=== PATIENT | female | born 1995 | race American Indian/Alaskan Native ===

== ENCOUNTER 2019-07-15 09:27 | Emergency (ER) | payer OTHER ==
[2019-07-15 09:34] VITALS: BP 106/67
[2019-07-15 10:17] LABS: Bacteria,Urine 2+ /HPF (Negative); Bilirubin,Urine NEG (Negative); Blood,Urine NEG (Negative); Color,Urine Yellow (Yellow); Mucus,Urine 1+ /HPF; Protein,Urine <15 mg/dL mg/dL (Negative); Urobilinogen,Urine < 2.0 mg/dL (<2.0)
[2019-07-15 10:33] LABS: Basophils % (Auto) 0.3 % (0.0-1.8); Eosinophils # (Auto) 0.3 K/mm3 (0.0-0.4); Eosinophils % (Auto) 2.9 % (0.0-4.3); Hematocrit 41.5 % (30.3-42.9); Hemoglobin 13.9 gm/dl (10.1-14.3); Lymphocytes # (Auto) 1.4 K/mm3 (1.2-5.4); Lymphocytes % (Auto) 14.3 % (13.4-35.0); Mean Corpuscular HGB Conc 34 % (30-34); Mean Corpuscular Volume 90 fl (79-97); Monocytes # (Auto) 0.8 K/mm3 (0.0-0.8); Monocytes % (Auto) 7.9 % (0.0-7.3); Platelet Count 183 K/mm3 (140-440); Red Blood Count 4.61 M/mm3 (3.65-5.03); Red Cell Distribution Width 13.3 % (13.2-15.2)
--- NOTE | 2019-07-15 11:18 | Emergency Department Report ---
ED Female HPI - General Chief complaint: Abdominal Pain Stated complaint: 4MTHS PREG/ABD PAIN Time Seen by Provider: 07/15/19 09:39 Source: patient Mode of arrival: Ambulatory Limitations: No Limitations - History of Present Illness Initial comments: This is a 24-year-old female who presents to ED at approximately 14 weeks gestation stating last menstrual period as 04/05/2019. Patient states that for the past month she isn't having intermittent spotting. Patient states she has not received care as she just recently moved to the [facility]. Patient is also experiencing low pelvic cramping. She states that yesterday she started experiencing throbbing aching headache. She denies any trauma or injuries. She denies fever, chills, dysuria - Related Data Previous Rx's Medication Instructions Recorded Last Taken Type Nitrofurantoin Wake/M-Cryst 100 mg PO Q12HR #14 capsule 07/15/19 Unknown Rx [Macrobid CAP] Allergies Allergy/AdvReac Type Severity Reaction Status Date / Time No Known Allergies Allergy Unverified 07/15/19 09:28 ED Review of Systems ROS: Stated complaint: 4MTHS PREG/ABD PAIN Other details as noted in HPI Comment: All other systems reviewed and negative ED Past Medical Hx - Past Medical History Previous Medical History?: No - Surgical History Past Surgical History?: No - Social History Smoking Status: Never Smoker Substance Use Type: None - Medications Home Medications: Home Medications Medication Instructions Recorded Confirmed Last Taken Type Nitrofurantoin Wake/M-Cryst 100 mg PO Q12HR #14 capsule 07/15/19 Unknown Rx [Macrobid CAP] ED Physical Exam - General Limitations: No Limitations General appearance: alert, in no apparent distress - Head Head exam: Present: atraumatic, normocephalic - Eye Eye exam: Present: normal appearance - ENT ENT exam: Present: mucous membranes moist - Neck Neck exam: Present: normal inspection - Respiratory Respiratory exam: Present: normal lung sounds bilaterally. Absent: respiratory distress - Cardiovascular Cardiovascular Exam: Present: regular rate, normal rhythm. Absent: systolic murmur, diastolic murmur, rubs, gallop - GI/Abdominal GI/Abdominal exam: Present: soft, normal bowel sounds - Extremities Exam Extremities exam: Present: normal inspection - Back Exam Back exam: Present: normal inspection - Neurological Exam Neurological exam: Present: alert, oriented X3 - Psychiatric Psychiatric exam: Present: normal affect, normal mood - Skin Skin exam: Present: warm, dry, intact, normal color. Absent: rash ED Course Vital Signs 07/15/19 09:32 Temperature 98.9 F Pulse Rate 92 H Respiratory 18 Rate Blood Pressure 106/67 O2 Sat by Pulse 96 Oximetry ED Medical Decision Making - Lab Data Result diagrams: 07/15/19 10:05 Laboratory Last Values WBC 10.1 K/mm3 (4.5-11.0) 07/15/19 10:05 RBC 4.61 M/mm3 (3.65-5.03) 07/15/19 10:05 Hgb 13.9 gm/dl (10.1-14.3) 07/15/19 10:05 Hct 41.5 % (30.3-42.9) 07/15/19 10:05 MCV 90 fl (79-97) 07/15/19 10:05 MCH 30 pg (28-32) 07/15/19 10:05 MCHC 34 % (30-34) 07/15/19 10:05 RDW 13.3 % (13.2-15.2) 07/15/19 10:05 Plt Count 183 K/mm3 (140-440) 07/15/19 10:05 Lymph % (Auto) 14.3 % (13.4-35.0) 07/15/19 10:05 Wake % (Auto) 7.9 % (0.0-7.3) H 07/15/19 10:05 Eos % (Auto) 2.9 % (0.0-4.3) 07/15/19 10:05 Baso % (Auto) 0.3 % (0.0-1.8) 07/15/19 10:05 Lymph # 1.4 K/mm3 (1.2-5.4) 07/15/19 10:05 Wake # 0.8 K/mm3 (0.0-0.8) 07/15/19 10:05 Eos # 0.3 K/mm3 (0.0-0.4) 07/15/19 10:05 Baso # 0.0 K/mm3 (0.0-0.1) 07/15/19 10:05 Seg Neutrophils % 74.6 % (40.0-70.0) H 07/15/19 10:05 Seg Neutrophils # 7.6 K/mm3 (1.8-7.7) 07/15/19 10:05 HCG, Qual Positive (Negative) 07/15/19 10:05 HCG, Quant 71972 mIU/mL (0-4) H 07/15/19 10:05 Urine Color Yellow (Yellow) 07/15/19 09:43 Urine Turbidity Cloudy (Clear) 07/15/19 09:43 Urine pH 7.0 (5.0-7.0) 07/15/19 09:43 Ur Specific [place] 1.020 (1.003-1.030) 07/15/19 09:43 Urine Protein <15 mg/dl mg/dL (Negative) 07/15/19 09:43 Urine Glucose (UA) Neg mg/dL (Negative) 07/15/19 09:43 Urine Ketones Neg mg/dL (Negative) 07/15/19 09:43 Urine Blood Neg (Negative) 07/15/19 09:43 Urine Nitrite Neg (Negative) 07/15/19 09:43 Urine Bilirubin Neg (Negative) 07/15/19 09:43 Urine Urobilinogen < 2.0 mg/dL (<2.0) 07/15/19 09:43 Ur Leukocyte Esterase Tr (Negative) 07/15/19 09:43 Urine WBC (Auto) 8.0 /HPF (0.0-6.0) H 07/15/19 09:43 Urine RBC (Auto) 4.0 /HPF (0.0-6.0) 07/15/19 09:43 U Epithel Cells (Auto) 12.0 /HPF (0-13.0) 07/15/19 09:43 Urine Bacteria (Auto) 2+ /HPF (Negative) 07/15/19 09:43 Urine Mucus 1+ /HPF 07/15/19 09:43 Blood Type O POSITIVE 07/15/19 10:05 Ord Rhogam Gestat Weeks Rh pos WEEKS 07/15/19 10:05 - Radiology Data Radiology results: report reviewed, image reviewed N: None FINDINGS: A single gestation intrauterine is present with breech presentation. The placenta is posterior low lying and grade 0. The cervix is obscured. I cannot assess for previa. heart tones measure 157 bpm. Subjective amniotic fluid is is within normal limits. anatomical survey was not performed. Biparietal diameter is 3.0 cm which equals 15 weeks 3 days. Head circumference is 11.4 cm which equals 15 weeks 4 days. Abdominal circumference is 9.3 cm which equals 15 weeks 3 days. Femur length is 1.6 cm which equals 14 weeks 4 days. Overall estimated sonographic age is . IMPRESSION: Viable, single intrauterine as described. Signer Name: Neal Sanchez Jr, MD Signed: 07/15/2019 12:08 PM Workstation Name: [id number] Transcribed By: TTR Dictated By: NEAL SANCHEZ JR, MD Electronically Authenticated By: NEAL SANCHEZ JR, MD Signed Date/Time: 07/15/19 1208 - Medical Decision Making 24-year-old female presents with pelvic pain to her is likely seconda ry to acute cystitis. All labs within normal limits. Urinalysis is positive for 2+ bacteria and BPC. We'll treat with Macrobid Discussed findings with mother and patient. Ultrasound shows no acute findings. [facility] referrals given to patient discussed follow-up Patient is in no acute distress she reports her wall Vital signs are normal Critical care attestation.: If time is entered above; I have spent that time in minutes in the direct care of this critically ill patient, excluding procedure time. ED Disposition Clinical Impression: Pelvic pain during , Acute cystitis during Disposition: DC-01 TO HOME OR SELFCARE Is pt being admited?: No Does the pt Need Aspirin: No Condition: Stable Instructions: Abdominal Pain (ED), Urinary Tract Infection in Women (ED) Additional Instructions: Make sure to follow up with the primary care physician as discussed. Follow-up with [facility] as discussed. Take all your medications as you've been prescribed. If you have any worsening symptoms or develop new symptoms please return to ED immediately. Prescriptions: Nitrofurantoin Wake/M-Cryst [Macrobid CAP] 100 mg PO Q12HR #14 capsule Referrals: [facility] [Primary Care Provider] - 3-5 Days [facility] [Provider Group] - 3-5 Days [facility] [Provider Group] - 3-5 Days [facility] [Provider Group] - 3-5 Days Forms: Accompanied Note, Work/School Release Form(ED) Time of Disposition: 12:30
--- NOTE | 2019-07-15 12:12 | Ultrasound Report ---
OB ULTRASOUND >= 14 WEEKS FETUS INDICATION: Vaginal bleeding during COMPARISON: None FINDINGS: A single gestation intrauterine is present with breech presentation. The placenta is union contract representative ior low lying and grade 0. The cervix is obscured. I cannot assess for previa. heart tones ned ure 157 bpm. Subjective amniotic fluid is is within normal limits. anatomical survey was not performed. Biparietal diameter is 3.0 cm which equals 15 weeks 3 days. Head circumference is 11.4 cm which equals 15 weeks 4 days. Abdominal circumference is 9.3 cm which equals 15 weeks 3 days. Femur length is 1.6 cm which equals 14 weeks 4 days. Overall estimated sonographic age is . IMPRESSION: Viable, single intrauterine as described. Signer Name: Neal Lockwood Jr, MD Signed: 07/15/2019 12:08 PM Workstation Name: [id number]
== END 2019-07-15 13:10 | disposition home or self-care (01) ==
LOC: ED 09:27
DX: O23.12 Infections of bladder in pregnancy, second trimester (principal); Z79.899 Other long term (current) drug therapy; Z3A.15 15 weeks gestation of pregnancy
CPT/HCPCS: 36415; 76805; 81001; 84702; 84703; 85025; 86900; 86901

== ENCOUNTER 2019-09-02 11:19 | Outpatient (CLI) | payer MEDICAID ==
[2019-09-02] MEDS ORDERED: LACTATED RINGERS 1,000 ML IV ONE (12:17)
[2019-09-02 12:29] LABS: Bacteria,Urine 1+ /HPF (Negative); Bilirubin,Urine NEG (Negative); Blood,Urine NEG (Negative); Color,Urine Yellow (Yellow); Mucus,Urine FEW /HPF; Protein,Urine <15 mg/dL mg/dL (Negative); Urobilinogen,Urine < 2.0 mg/dL (<2.0)
[2019-09-02 14:23] VITALS: BP 203/110
== END 2019-09-02 14:17 | disposition home or self-care (01) ==
LOC: TRG 11:19
PROVIDERS: ATTEND Obstetrics & Gynecology
DX: O26.892 Other specified pregnancy related conditions, second trimester (principal); R52 Pain, unspecified; O47.02 False labor before 37 completed weeks of gestation, second trimester; Z3A.21 21 weeks gestation of pregnancy
CPT/HCPCS: 59025; 81001; 96360; J7120

== ENCOUNTER 2019-09-10 16:05 | Outpatient (CLI) | payer MEDICAID ==
[2019-09-10 16:32] VITALS: BP 105/56
[2019-09-10 16:35] LABS: Bilirubin,Urine NEG (Negative); Blood,Urine LG (Negative); Color,Urine Yellow (Yellow); Mucus,Urine FEW /HPF; Urobilinogen,Urine < 2.0 mg/dL (<2.0)
[2019-09-10 16:36] LABS: RBC,Urine > 182.0 /HPF (0.0-6.0)
[2019-09-10] MEDS ORDERED: LACTATED RINGERS 500 ML IV ONE (17:00)
[2019-09-10] MEDS ORDERED: LACTATED RINGERS 1,000 ML IV ONE (18:03)
[2019-09-10] MEDS ORDERED: cefTRIAXone/NS 1 GM/50 ML 1 GM/50 ML BAG IV ONE (18:54)
== END 2019-09-10 19:00 | disposition home or self-care (01) ==
LOC: TRG 16:05
PROVIDERS: ATTEND Obstetrics & Gynecology
DX: O26.892 Other specified pregnancy related conditions, second trimester (principal); R31.9 Hematuria, unspecified; O47.02 False labor before 37 completed weeks of gestation, second trimester; Z3A.22 22 weeks gestation of pregnancy
CPT/HCPCS: 59025; 81001; 87086; 96365; J0696; J7120; 96360; 96374

== ENCOUNTER 2019-12-27 19:06 | Outpatient (CLI) | payer MEDICAID | END 2019-12-27 20:25 | disposition home or self-care (01) | LOC: TRG 19:06 | PROVIDERS: ATTEND Obstetrics & Gynecology | DX: O26.893 Other specified pregnancy related conditions, third trimester (principal); G83.89 Other specified paralytic syndromes; Z3A.30 30 weeks gestation of pregnancy | CPT/HCPCS: 87529 ==

== ENCOUNTER 2020-01-03 13:59 | Inpatient (IN) | payer MEDICAID ==
--- NOTE | 2020-01-03 17:16 | Ultrasound Report ---
ULTRASOUND BIOPHYSICAL PROFILE INDICATION / CLINICAL INFORMATION: Evaluate well being. COMPARISON: Obstetrical ultrasound, 07/15/2019 FINDINGS: BREATHING MOVEMENT = 0 GROSS BODY MOVEMENT = 2 TONE = 2 QUALITATIVE AMNIOTIC FLUID VOLUME = 2 TOTAL BIOPHYSICAL SCORE = 6/8 AMNIOTIC FLUID INDEX (cm) = 21 Amniotic fluid appears echogenic. PRESENTATION: Cephalic. HEART RATE (beats per minute): 110 IMPRESSION: 1. biophysical profile = /8 with details given above. 2. Low heart rate at 110 bpm. 3. Overall, amniotic fluid appears echogenic, suggesting complicated fluid or debris. Signer Name: Kristen Mccollum MD Signed: 01/03/2020 5:12 PM Workstation Name: [id number]
[2020-01-03] MEDS ORDERED: MORPHINE 2 MG/1 ML INJ IM ONE (17:38)
[2020-01-03] MEDS ORDERED: LACTATED RINGERS 1,000 ML ONE (19:40)
[2020-01-03] MEDS ORDERED: OXYTOCIN 20 UNIT/1000ML DRIP 20,000 MILLIUNITS/1,000 ML BAG IV ONE (19:41)
[2020-01-03] MEDS ORDERED: MINERAL OIL 30 ML ORAL LIQD ONE (19:41)
[2020-01-03] MEDS ORDERED: LACTATED RINGERS 1,000 ML IV ONE (19:41)
[2020-01-03 20:20] LABS: Basophils % (Auto) 0.3 % (0.0-1.8); Eosinophils % (Auto) 0.1 % (0.0-4.3); Hematocrit 40.6 % (30.3-42.9); Hemoglobin 13.4 gm/dl (10.1-14.3); Lymphocytes # (Auto) 2.2 K/mm3 (1.2-5.4); Lymphocytes % (Auto) 15.1 % (13.4-35.0); Mean Corpuscular HGB Conc 33 % (30-34); Mean Corpuscular Volume 88 fl (79-97); Monocytes # (Auto) 1.2 K/mm3 (0.0-0.8); Monocytes % (Auto) 8.3 % (0.0-7.3); Platelet Count 240 K/mm3 (140-440); Red Cell Distribution Width 14.4 % (13.2-15.2)
[2020-01-03] MEDS ORDERED: fentaNYL 100 MCG/2 ML INJ IV PRN (20:29)
[2020-01-03] MEDS ORDERED: BUTORPHANOL 2 MG/1 ML INJ IV PRN ×2 (20:29)
[2020-01-03] MEDS ORDERED: AMPICILLIN/NS 2 GM/100 ML 2 GM/100 ML BAG IV ONE (20:29)
[2020-01-03] MEDS ORDERED: LIDOCAINE (2%) 20 MG/1 ML VIAL 20 ML MDV INFILTRATI ONE (20:29)
[2020-01-03] MEDS ORDERED: NALOXONE 0.4 MG/1 ML INJ IV PRN (20:29)
[2020-01-03] MEDS ORDERED: TERBUTALINE 1 MG/1 ML INJ SUB-Q PRN (20:29)
[2020-01-03] MEDS ORDERED: TERBUTALINE 1 MG/1 ML INJ IVP PRN (20:29)
[2020-01-03] MEDS ORDERED: ONDANSETRON 4 MG/2 ML INJ IV PRN (20:29)
[2020-01-03] MEDS ORDERED: MINERAL OIL 30 ML ORAL LIQD PO PRN (20:29)
[2020-01-03] MEDS ORDERED: ePHEDrine SULFATE 50 MG/1 ML INJ IV PRN ×2 (20:29→21:13)
--- NOTE | 2020-01-03 20:41 | History and Physical Report ---
History of Present Illness Date of examination: 01/04/20 Chief complaint: contractions History of present illness: Pt is a 24 year old female primigravida TIA 01/10/20 at 39w1d who pre sents with painful contractions and cervical change from 1 to 3 cm. 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 She is GBS negative. PUI?: No Past History Past Medical History: neurologic (Brown's Palsy ) Past Surgical History: no surgical history Family/Genetic History: none Social history: no significant social history - Obstetrical History Expected Date of Delivery: 01/10/20 Actual Gestation: 39 Week(s) 1 Day(s) : 1 Medications and Allergies Allergies Allergy/AdvReac Type Severity Reaction Status Date / Time No Known Allergies Allergy Verified 01/03/20 14:00 Home Medications Medication Instructions Recorded Confirmed Last Taken Type Nitrofurantoin Lee/M-Cryst 100 mg PO Q12HR #14 capsule 07/15/19 Unknown Rx [Macrobid CAP] prednisoLONE [Millipred] 2 tab PO BID 12 Days #48 tablet 12/27/19 Unknown Rx Active Meds: Active Medications Butorphanol Tartrate (Stadol) 1 mg IV Q2H PRN PRN Reason: Labor Pain Butorphanol Tartrate (Stadol) 2 mg IV Q2H PRN PRN Reason: Pain , Severe (7-10) Ephedrine Sulfate (Ephedrine Sulfate) 10 mg IV Q2M PRN PRN Reason: Hypotension Fentanyl (Sublimaze) 100 mcg IV Q2H PRN PRN Reason: Labor Pain Oxytocin/Sodium Chloride (Pitocin/Ns 20 Unit/1000ml Drip) 20 units in 1,000 mls @ 125 mls/hr IV DIRECT SARA Oxytocin/Sodium Chloride (Pitocin/Ns 30 Unit/500ml) 30 units in 500 mls @ 1 mls/hr IV TITR SARA; Protocol Oxytocin/Sodium Chloride (Pitocin/Ns 30 Unit/500ml) 30 units in 500 mls @ 2 mls/hr IV TITR SARA; Protocol Lactated Ringer's (Lactated Ringers) 1,000 mls @ 125 mls/hr IV DIRECT SARA Ampicillin Sodium (Ampicillin/Ns 2 Gm/100 Ml) 2 gm in 100 mls @ 100 mls/hr IV ONCE ONE; Protocol Stop: 01/03/20 21:28 Ampicillin Sodium (Ampicillin/Ns 1 Gm/50 Ml) 1 gm in 50 mls @ 100 mls/hr IV Q4HR SARA; Protocol Lidocaine (Xylocaine 2%) 20 ml INFILTRATI ONCE ONE Stop: 01/03/20 20:30 Mineral Oil (Mineral Oil) 30 ml PO QHS PRN PRN Reason: Constipation Naloxone HCl (Naloxone) 0.1 mg IV Q2MIN PRN PRN Reason: Res Rate </= 8 or 02 SAT < 92% Ondansetron HCl (Zofran) 4 mg IV Q8H PRN PRN Reason: Nausea And Vomiting Terbutaline Sulfate (Brethine) 0.25 mg SUB-Q ONCE PRN PRN Reason: Hyperstimulation/Hypertonicity Terbutaline Sulfate (Brethine) 0.25 mg IVP ONCE PRN PRN Reason: Hyperstimulation/Hypertonicity Review of Systems All systems: negative - Vital Signs Vital signs: Vital Signs Pulse BP 101 H 115/64 01/03/20 14:16 01/03/20 14:16 Temp Pulse Resp BP Pulse Ox 98.5 F 76 131/71 86 01/03/20 19:30 01/03/20 20:31 01/03/20 20:31 01/03/20 19:40 - Physical Exam Abdomen: Positive: soft (gravid ) Uterus: Positive: enlarged (gravid ) - Obstetrical FHR: auscultation normal Cervical Dilatation: 10 Cervical Effacement Percentage: 100 station: +2 Uterine Contraction Pattern: Regular Uterine Tone Measurement Phase: Resting Uterine Contraction Intensity: Strong/Firm Results Result Diagrams: 01/03/20 19:30 Abnormal lab results 01/03/20 Range/Units 19:30 WBC 14.5 H (4.5-11.0) K/mm3 Lee % (Auto) 8.3 H (0.0-7.3) % Lee # 1.2 H (0.0-0.8) K/mm3 Seg Neutrophils % 76.2 H (40.0-70.0) % Seg Neutrophils # 11.1 H (1.8-7.7) K/mm3 All other labs normal. Assessment and Plan A: IUP at 39w1d Active labor Brown's Palsy GBS Negative P: Admit to labor and delivery. Routine intrapartum care
[2020-01-03] MEDS ORDERED: DEXMEDETOMIDINE 200 MCG/2 ML VIAL IV ONE (20:48)
[2020-01-03] MEDS ORDERED: OXYTOCIN DRIP 30 UNITS/500 ML BAG IV SCH ×2 (21:00)
[2020-01-03] MEDS ORDERED: LACTATED RINGERS 1,000 ML IV SCH (21:00)
[2020-01-03] MEDS ORDERED: NALOXONE 2 MG/2 ML INJ IV PRN (21:13)
--- NOTE | 2020-01-03 21:17 | Anesthesia Consultation ---
Anesthesia Consult and Med Hx Date of service: 01/03/20 - Airway Anesthetic Teeth Evaluation: Good ROM Head & Neck: Adequate Mental/Hyoid Distance: Adequate Mallampati Class: Class II Intubation Access Assessment: Probably Good - Pulmonary Exam CTA: Yes - Cardiac Exam Cardiac Exam: RRR - Pre-Operative Health Status ASA Pre-Surgery Classification: ASA2 Proposed Anesthetic Plan: Epidural - Pulmonary Hx Smoking: No Hx Asthma: No Hx Respiratory Symptoms: No SOB: No COPD: No Home Oxygen Therapy: No Hx Pneumonia: No Hx Sleep Apnea: No - Cardiovascular System Hx Hypertension: No Hx Coronary Artery Disease: No Hx Heart Attack/AMI: No Hx Angina: No Hx Percutaneous Transluminal Coronary Angioplasty (PTCA): No Hx Cardia Arrhythmia: No Hx Pacemaker: No Hx Internal Defibrillator: No Hx Valvular Heart Disease: No Hx Heart Murmur: No Hx Peripheral Vascular Disease: No - Central Nervous System Hx Neuromuscular Disorder: No Hx Seizures: No CVA: No Hx Back Pain: No Hx Psychiatric Problems: No - Gastrointestinal Hx Ulcer: No Hx Gastroesophageal Reflux Disease: Yes - Endocrine Hx Renal Disease: No Hx End Stage Renal Disease: No Hx Cirrhosis: No Hx Liver Disease: No Hx Insulin Dependent Diabetes: No Hx Non-Insulin Dependent Diabetes: No Hx Thyroid Disease: No Hx Hypothyroidism: No Hx Hyperthyroidism: No - Hematic Hx Anemia: No Hx Sickle Cell Disease: No - Other Systems Hx Alcohol Use: No Hx Substance Use: No Hx Cancer: No Hx Obesity: No
--- NOTE | 2020-01-03 21:44 | Progress Note ---
Labor Epidural - Labor Epidural Start Time: 20:42 Stop Time: 20:58 Performed by:: ANGELA PARTIDA Procedure: Combined Spinal Epidural Patient is requesting combined spinal epidural for labor and pain. H&P, labs were reviewed. All questions and concerns were answered. Informed consent was obtained. Timeout performed. Patient in sitting position on side of bed. Sterile prep and drape was performed. [3] mL 1% lidocaine skin wheal at L [4]-L 5 []. 18-gauge Touhy epidural needle advanced to [id number] using air technique, [5cm]. 27-gauge spinal needle advanced [clear positive free- flowing] CSF. spinal dose of [Precedex 10 mcg]. Epidural catheter advanced to [10] cm. [Negative] Aspiration, [negative] test dose. Sterile dressing applied. Patient tolerated procedure well.
[2020-01-03] MEDS ORDERED: fentaNYL-BUPIV 2 MCG/ML-0.125% 200 MCG/100 ML BAG EPIDURAL SCH (22:00)
[2020-01-04] MEDS: OXYTOCIN 20 UNIT/1000ML DRIP 20 UNITS/1,000 ML BAG IV SCH ×2 (00:18→01:08)
[2020-01-04] MEDS ORDERED: AMPICILLIN/NS 1 GM/50 ML 1 GM/50 ML BAG IV SCH (00:31)
--- NOTE | 2020-01-04 00:47 | Procedure Note ---
OB Delivery Note - Delivery Date of Delivery: 01/04/20 Surgeon: RORO RICE Estimated blood loss: other (400 mL) - Vaginal Delivery presentation: vertex Delivery position: OA Intrapartum events: PROM->1hr before delivery Delivery induction: none Delivery monitor: external FHT, external uterine Route of delivery: Delivery placenta: spontaneous Delivery cord: nuchal cord (x 1, tight, delivered through ) Episiotomy: none Delivery laceration: 2nd degree Delivery repair: vicryl Anesthesia: epidural - Infant A at 1 minute: 7 at 5 minutes: 9 Gender: Male (7lb 7.6 oz @ 0008 am)
--- NOTE | 2020-01-04 02:05 | Event Note ---
Date: 01/04/20 After delivery, pt was febrile to 101. Begin Ampicillin, Gentamicin and Clindamycin. Continue to monitor clinically.
[2020-01-04] MEDS ORDERED: GENTAMICIN 0 MG in SODIUM CHLORIDE 0.9% 100 ML IV SCH (02:15)
[2020-01-04] MEDS ORDERED: ACETAMINOPHEN 325 MG TAB PO ONE (02:22)
[2020-01-04] MEDS: AMPICILLIN/NS 2 GM/100 ML 2 GM/100 ML BAG IV SCH ×4 (02:34→21:07)
[2020-01-04] MEDS ORDERED: PROMETHAZINE 25 MG RECT SUPP PR PRN (03:55)
[2020-01-04] MEDS ORDERED: LANOLIN/ZINC/DIMETHICONE (LANSINOH) 7 GM TP PRN ×2 (03:55)
[2020-01-04] MEDS ORDERED: OXYTOCIN 20 UNIT/1000ML DRIP 20 UNITS/1,000 ML BAG IV SCH (03:55)
[2020-01-04] MEDS ORDERED: ONDANSETRON 4 MG/2 ML INJ IV PRN (03:55)
[2020-01-04] MEDS ORDERED: ACETAMINOPHEN 325 MG TAB PO PRN (03:55)
[2020-01-04] MEDS ORDERED: diphenhydrAMINE 25 MG CAP PO PRN (03:55)
[2020-01-04] MEDS ORDERED: PROMETHAZINE 25 MG TAB PO PRN (03:55)
[2020-01-04] MEDS ORDERED: MAGNESIUM HYDROXIDE (MOM) ORAL LIQD UDC PO PRN (03:55)
[2020-01-04] MEDS ORDERED: HYDROcodone/ACETAMINOPHEN 5-325 MG TAB PO PRN (03:55)
[2020-01-04] MEDS: GENTAMICIN/NS 80 MG/100 ML 100 ML IV SCH ×3 (04:38→19:59)
[2020-01-04] MEDS: IBUPROFEN 600 MG TAB PO SCH ×3 (04:43→17:33)
[2020-01-04] MEDS: BENZOCAINE/MENTHOL 20/0.5% TOP SPRAY 56 GM TP PRN ×2 (06:27→21:06)
[2020-01-04] MEDS: WITCH HAZEL/ GLYCERIN PAD TP PRN ×2 (06:27→21:04)
[2020-01-04] MEDS: FERROUS SULFATE 325 MG TAB PO SCH ×2 (08:59→21:03)
[2020-01-04] MEDS ORDERED: LACTATED RINGERS 1,000 ML IV SCH (09:00)
--- NOTE | 2020-01-04 10:50 | Post Anesthesia Evaluation ---
- Post Anesthesia Evaluation Patient Participated: Yes Airway Patent: Yes Stable Respiratory Function: Yes Nausea/Vomiting: No Temp > 96.8F: Yes Pain Manageable: Yes Adequeate Hydration: Yes Anesthesia Complications: No Block Receding Appropriately: Yes Patient on Ventilator: No
[2020-01-04 14:21] LABS: Hematocrit 35.3 % (30.3-42.9); Hemoglobin 11.9 gm/dl (10.1-14.3)
[2020-01-05] MEDS ORDERED: MEASLES, MUMPS & RUBELLA 12,500 UNIT/0.5 ML VACCINE SUB-Q ONE (00:50)
[2020-01-05] MEDS: GENTAMICIN/NS 80 MG/100 ML 100 ML IV SCH (02:42)
[2020-01-05] MEDS: AMPICILLIN/NS 2 GM/100 ML 2 GM/100 ML BAG IV SCH (03:36)
[2020-01-05] MEDS ORDERED: TETANUS,DIPH,PERTUSS(ACELL) VACCINE 0.5 ML SYRINGE IM ONE (06:00)
--- NOTE | 2020-01-05 07:00 | Ultrasound Report ---
Please see "ULTRASOUND BIOPHYSICAL PROFILE" performed at the same time for combined report. Signer Name: Ryan Andrade MD Signed: 01/05/2020 6:55 AM Workstation Name: [id number]
--- NOTE | 2020-01-05 08:06 | Progress Note ---
Assessment and Plan A/P PPD1 s/p discharge home tomorrow Subjective - Subjective Date of service: 01/05/20 Principal diagnosis: s/p Patient reports: appetite normal, voiding normally, pain well controlled, flatus, ambulating normally : doing well Objective - Vital Signs Latest vital signs: Vital Signs Temp Pulse Resp BP Pulse Ox 01/05/20 02:15 98.2 F 87 18 116/72 97 01/04/20 17:53 98.4 F 85 18 107/60 98 01/04/20 12:41 98.1 F 97 H 18 121/70 98 01/04/20 08:10 98.5 F Intake and Output 01/04/20 01/05/20 01/05/20 23:59 07:59 15:59 Intake Total 830 360 Output Total 750 Balance 80 360 Intake: IV 350 AMPICILLIN/NS 2 GM/100 ML 200 2 gm In 100 ml @ 100 mls /hr IV Q6H SARA Rx#: [id number] CLEOCIN 900 MG/50 mL 900 50 mg In 50 ml @ 100 mls/hr IV Q8H SARA Rx#:[id number] Gentamicin/Ns 80 mg/100 100 ml 100 ml @ 200 mls/hr IV Q8H SARA Rx#:[id number] Oral 480 360 Output: Urine 750 Indwelling Catheter 750 Other: Total, Intake Amount 240 120 Total, Output Amount 750 # Voids Void 1 1 - Exam Breasts: Present: normal Cardiovascular: Present: Regular rate, Normal S1 Lungs: Present: Clear to auscultation, Normal air movement Abdomen: Present: normal appearance, soft, normal bowel sounds. Absent: dis tention, tenderness, guarding Vulva: both: normal Uterus: Present: normal, firm. Absent: bogginess, tenderness Extremities: Present: normal Deep Tendon Reflex Grade: Normal +2 Incision: Present: normal
--- NOTE | 2020-01-05 08:08 | Discharge Summary ---
Providers - Providers Date of Admission: 01/03/20 20:29 Date of discharge: 01/05/20 Attending physician: RORO RICE Primary care physician: ANT AARON Hospitalization Reason for admission: active labor Delivery: Episiotomy: none Laceration: none Incision: normal, dry, intact Other procedures: none complications: none Discharge diagnosis: IUP at term delivered baby: male Hospital course: rotuine PP care Condition at discharge: Good Disposition: DC-01 TO HOME OR SELFCARE Plan - Discharge Medications Prescriptions: Ibuprofen [Motrin] 800 mg PO Q8HR PRN #30 tablet PRN Reason: Pain , Severe (7-10) HYDROcodone/APAP 5-325 [[place] 5/325] 1 each PO Q6HR PRN #20 tablet PRN Reason: Pain - Provider Discharge Summary Activity: routine, no sex for 6 weeks, no strenuous exercise Diet: routine Instructions: routine Additional instructions: [] Smoking cessation referral if applicable(refer to patient education folder for contact #) [] Refer to [facility]'s [facility] Booklet Call your doctor immediately for: * Fever > 100.5 * Heavy vaginal bleeding ( >1 pad per hour) * Severe persistent headache * Shortness of breath * Reddened, hot, painful area to leg or breast * Drainage or odor from incision. * Keep incision clean and dry at all times and follow doctor's instructions regarding bathing/showering - Follow up plan Follow up: ANT AARON PA [Primary Care Provider] - 02/02/20
[2020-01-05] MEDS: FERROUS SULFATE 325 MG TAB PO SCH (09:58)
[2020-01-05 12:50] VITALS: BP 105/63
== END 2020-01-05 12:30 | disposition home or self-care (01) | DRG 775 ==
LOC: TRG 13:59 → LD 20:09 → TRG 20:29 → LD 20:29 → OB 01-04 03:52
PROVIDERS: ADMIT Obstetrics & Gynecology; ATTEND Obstetrics & Gynecology
PROC: 10E0XZZ Delivery of Products of Conception, External Approach (ICD-10-PCS; principal; 2020-01-04)
PROC: 0KQM0ZZ Repair Perineum Muscle, Open Approach (ICD-10-PCS; 2020-01-04)
PROC: 3E0R3BZ Introduction of Anesthetic Agent into Spinal Canal, Percutaneous Approach (ICD-10-PCS; 2020-01-04)
PROC: 00HU33Z Insertion of Infusion Device into Spinal Canal, Percutaneous Approach (ICD-10-PCS; 2020-01-04)
PROC: 3E0234Z Introduction of Serum, Toxoid and Vaccine into Muscle, Percutaneous Approach (ICD-10-PCS; 2020-01-05)
PROC: 3E0134Z Introduction of Serum, Toxoid and Vaccine into Subcutaneous Tissue, Percutaneous Approach (ICD-10-PCS; 2020-01-05)
DX: O42.92 Full-term premature rupture of membranes, unspecified as to length of time between rupture and onset of labor (principal); O69.81X0 Labor and delivery complicated by cord around neck, without compression, not applicable or unspecified; O70.1 Second degree perineal laceration during delivery; O99.62 Diseases of the digestive system complicating childbirth; G51.0 Bell's palsy; O99.354 Diseases of the nervous system complicating childbirth; K21.9 Gastro-esophageal reflux disease without esophagitis; Z3A.39 39 weeks gestation of pregnancy; Z37.0 Single live birth; Z23 Encounter for immunization; Z79.899 Other long term (current) drug therapy
CPT/HCPCS: 36415; 76815; 76819; 85014; 85018; 85025; 86592; 86850; 86900; 86901; 90471; G0378; J0290; J1580; J2270; J2590; J3490; J7120